=== PATIENT | female | born 1995 | race Two or more races ===

== ENCOUNTER 2024-01-07 10:15 | Day surgery (SDC) | payer MEDICAID, SELFPAY ==
--- NOTE | 2024-01-01 07:00 | EKG_ITS ---
[facility] Test Date: 2024-01-01 Pat Name: BENJI MORELAND Department: Room: - Gender: Female Clerical Adjuster: TEJAL : 1995 Requested By: Tomi Langston Order Number: [id number] Reading MD: Tomi Langston Measurements Intervals Max Rate: 81 P: 19 WA: 154 QRS: 87 QRSD: 96 T: 25 QT: 368 QTc: 430 Interpretive Statements SINUS RHYTHM INCOMPLETE RIGHT BUNDLE BRANCH BLOCK No previous ECG available for comparison /[id number]
[2024-01-01 11:22] VITALS: BMI 30.5
[2024-01-01 12:16] LABS: Basophils % (Auto) 0 % (0-2.5); Eosinophils # (Auto) 0.1 Thou/mm3 (0.0-0.5); Eosinophils % (Auto) 1 % (0-10); Hematocrit 40.5 % (36.0-46.0); Hemoglobin 13.3 g/dL (12.0-16.0); Immature Granulocytes % (Auto) 0 % (0-0); Immature Granulocytes Auto 0.05 Thou/mm3 (0.00-0.00); Lymphocytes # (Auto) 2.9 Thou/mm3 (1.0-4.8); Lymphocytes % (Auto) 25 % (10-50); Mean Corpuscular HGB Conc 32.8 g/dl (31.0-37.0); Mean Corpuscular Hemoglobin 29.3 pg (25.0-35.0); Mean Corpuscular Volume 89 fL (80-100); Monocytes # (Auto) 1.2 Thou/mm3 (0.0-0.8); Monocytes % (Auto) 11 % (0-12); Neutrophils # (Auto) 7.3 Thou/mm3 (1.8-7.7); Neutrophils % (Auto) 63 % (37-80); Nucleated Red Blood Cell % 0 /100 WBC (0); Platelet Count 324 Thou/mm3 (140-440); RDW Standard Deviation 43.8 fL (36.4-46.3); Red Blood Count 4.54 Miln/mm3 (4.00-5.20); White Blood Count 11.6 Thou/mm3 (3.6-11.0)
[2024-01-01 12:23] LABS: Partial Thromboplastin Time 29.2 Seconds (22.0-36.0); Prothrombin Time 11.4 Seconds (9.0-12.2)
[2024-01-01 12:28] LABS: Alanine Aminotransferase 30 U/L (10-49); Albumin, Serum 4.7 gm/dL (3.5-5.0); Albumin/Globulin Ratio 1.5 (1.2-2.2); Alkaline Phosphatase 85 U/L (46-116); Anion Gap 6 (7-16); Aspartate Amino Transferase 21 U/L (0-34); BUN/Creatinine Ratio 13 Ratio (12-20); Beta HCG,Quantitative 1 mIU/mL (<5.0); Bilirubin,Total 0.6 mg/dL (0.3-1.2); Blood Urea Nitrogen 9 mg/dL (9-23); Carbon Dioxide 26.2 mMol/L (20.0-31.0); Chloride 105 mMol/L (98-107); Creatinine (Component) 0.7 mg/dL (0.6-1.3); Estimated Creatinine Clearance 125.2 mL/min (>60); Globulin 3.2 gm/dL (2.3-3.5); Glucose 107 mg/dL (74-106); Osmolality,Calculated 272 (275-295); Potassium 3.6 mMol/L (3.4-5.1); Sodium 137 mMol/L (136-145); Total Protein 7.9 gm/dL (5.7-8.2); eGFR > 60 See Note
--- NOTE | 2024-01-05 11:18 | PD.SURHP ---
HPI Date of Admission January 07, 2024 Chief Complaint Chief Complaint: Infected mass in the right breast. Granulomatous mastitis right breast. HPI This is a 28-year-old female she has had a granulomatous mastitis requiring resection on the left breast that was about a year and a half ago. She continued to have granulomatous mastitis in the right breast now. She had this happen to her after she got a few years ago. It got to a point where it required resection of the granulomatous mastitis. This time she has extensive disease in the right breast and will require partial mastectomy after mapping by the ultrasound. Risk benefits and alternatives were discussed with the patient and informed consent is obtained. Past Medical History Past Medical History NEUROLOGIC: Negative Neurological Disorders or Seizures CARDIAC: Negative Cardiac Disorders or Congestive Heart Failure RESPIRATORY: Negative Respiratory Disorders or Chronic Obstructive Pulmonary Disease (COPD) GASTROINTESTINAL: Positive Gastrointestinal Disorders and Obesity GENITOURINARY: Negative Genitourinary Disorders or Renal Disease REPRODUCTIVE: Positive Previous Pregnancies (2) MUSCULOSKELETAL: Negative Musculoskeletal Disorders ENT: Negative History of ENT Problems ENDOCRINE: Negative Endocrine Disorders, Diabetes Mellitus Type 1 or Diabetes Mellitus Type 2 HEMATOLOGIC: Negative Blood Disorders OTHER HISTORY: Positive Hospitalization (surgery), Chicken Pox and Measles; Negative Autoimmune Disease, Shingles, Blood Transfusions, Blood Transfusion Reaction, Anesthesia Reactions, MRSA or Cancer Family History FAMILY HISTORY: Positive Family Cardiac Disorders; Negative Family Psychiatric Problems, Family Respiratory Disorders, Family Gastrointestinal Problems, Family Genitourinary Problems, Family Endocrine Disorders, Family Reproductive Disorders, Family Musculoskeletal Disorders, Family Cancer, Family Surgery or Family Anesthesia Reaction Surgical History SURGICAL: Positive Section Social History SMOKING STATUS: Never smoker Travel History EBOLA RISK: No Meds Home Medications and Allergies Home Medications ?Medication ?Instructions ?Recorded ?Confirmed ?Type No Known Home Medications 01/01/24 01/01/24 History Allergies Allergy/AdvReac Type Severity Reaction Status Date / Time No Known Allergies Allergy Verified 01/01/24 12:00 Exam Constitutional Constitutional: no acute distress Routine HEENT Exam Head: Present normocephalic Eye: Present EOMI and PERRL ENT: Present mucous membranes moist Routine Neck Exam Neck: Present supple and trachea midline Routine Chest/Breast/Axilla Exam Chest wall: Absent tenderness or mass Breast: Present tenderness (There generalized tenderness in the entire right breast) and scars (There are multiple large scars indicative of areas where she was having draining sinuses due to the granulomatous mastitis.) Comments: The ultrasound examination of the breast showed that she has a multiple abscesses they are connected to the areas of scar on the right breast. Some of these abscesses are also pointing to the nipple areola region. These were previously aspirated ultrasound guidance and treated with antibiotics but did not heal up. She also has scars from previous resection in the left breast and the left breast is not symptomatic at this time and has no tenderness. Routine Respiratory Exam Respiratory: Present chest non-tender, lungs clear, normal breath sounds and no resp distress; Absent respiratory distress Routine Cardiovascular Exam Cardiovascular: Present RRR Routine Abdominal Exam Abdominal: Present soft and normoactive bowel sounds Routine Extremities Exam Extremities: Present full ROM Routine Skin Exam Skin: Present intact, dry and warm Routine Neurological Exam Neurological: Present alert, oriented X3 and CN II-XII intact Routine Psychiatric Exam Psychiatric: Present normal affect and normal thought process Results Results: Laboratory Laboratory results: results reviewed Assessment & Plan Problem List (1) Granulomatous mastitis of right breast: Status: Acute Plan Ultrasound-guided mapping of the granulomatous mastitis areas in the right breast and resection with partial mastectomy. An informed consent was obtained. Quality Measures Quality Measures none
[2024-01-07] VITALS (9 sets, daily range): BP systolic 118–132; BP diastolic 72–83; PULSE 84–112; RESP 15–20; TEMP 36.5–37.7; O2SAT 95–98; BMI 30.2
--- NOTE | 2024-01-07 10:39 | CHAP ---
Patient expressed gratitude for prayer before her procedure.
[2024-01-07 13:04] LABS: Collection Type, Urine Clean Catch; Squamous Epithelial Cell,Urine 0 /hpf (0-5)
[2024-01-07 13:08] LABS: Bilirubin,Urine Negative (Negative); Blood,Urine 2+ (Negative); Clarity,Urine Clear (Clear/Hazy); Color,Urine Lt-Yellow (Lt Yel-Yel); Glucose, Urine Negative (Negative); Ketones,Urine Negative (Negative); Leukocyte Esterase,Urine Negative (Negative); Nitrite,Urine Negative (Negative); Protein,Urine Negative (Neg - Trace); RBC,Urine 20 /hpf (0-3); Specific Gravity,Urine 1.017 (1.001-1.035); Urobilinogen,Urine Negative mg/dL (0.0-1.0); WBC,Urine 1 /hpf (0-5)
--- NOTE | 2024-01-07 15:25 | SUR.PHASEI ---
1525: Pt. AAOx4, vitals stable, breathing unlabored, no complaint of pain or nausea, dressing to right breast CDI, PRATIBHA drain in place draining sanguineous fluid, report received from Gianni MADERA and MD Plascencia.
--- NOTE | 2024-01-07 15:29 | ESOP_ITS ---
Date of Procedure 01/07/24 Pre Op Diagnosis Granulomatous mastitis right breast Post Op Diagnosis Same. Procedure Right partial mastectomy Findings This patient has had extensive granulomatous mastitis. She had a sinuses on the skin draining she had a significant number of tracking infections underneath the nipple areola 12 o'clock position at 6 o'clock position at 3 o'clock position into 9 o'clock position. Basically the entire ductal system in the central portion of the breast was involved in the granulomatous mastitis with multiple abscesses. Several cultures were taken from the pus collections. The area was significantly inflamed. Procedure Description The patient is interviewed in the preop area and site and side were marked. The procedure was discussed in great detail with the patient. All questions were answered and informed consent is obtained. Patient was then taken to the operating room and patient is positioned supine on the operating table. The general anesthesia was administered in a satisfactory manner. An ultrasound examination of the breast was carried out to zaira the areas involved in mastitis. After that the right breast chest wall shoulder regions were prepped and draped in usual manner. Elliptical incision was made around the sinus openings and the incision was carried from 9:00 around the areola and to the 3 o'clock position. The upper and lower flaps were drawn on the surface. The incision is deepened through the skin and subcutaneous tissue. The flaps were developed at the level of skin and subcutaneous tissue. The dissection is carried out underneath the nipple areola and the ductal system was disconnected from the nipple. Dissection is carried out circumferentially taking out of the infected involved ductal tissue from 12:00 to 3:00 to 6:00 to 9:00 into 12 o'clock position. Extensive dissection and resection was needed. The ductal tissue was removed all the way up to the pectoralis fascia. Because of the inflammation there was brisk bleeding the bleeding was controlled with cautery and suture ligation technique. After all the involved tissue was removed the op erative field was thoroughly irrigated with saline solution and again hemostasis was achieved. I placed a 10 [place] flat Wagner-Spring drain into the operative cavity by a separate stab incision and sutured to the skin using 2-0 nylon suture. The subcutaneous tissue was approximated by 2-0 Vicryl interrupted sutures and skin by 3-0 nylon interrupted sutures. Sterile pressure dressing was applied. Patient tolerated the procedure very well complications none. Anesthesia GETA Drains 7 Mong[place]ian flat Wagner-Spring Pathology / specimen Other (Right breast granulomatous mastitis partial mastectomy) Estimated Blood Loss 200 Condition Stable Disposition PACU Surgeon Tomi Langston MD Surgical Staff Operation Date: 01/07/24 14:00 Case Staff Anesthesiologist: Hunter Plascencia RN First Assistant: Dali Salazar RNmold inspector: Nabor Mathew RN equipment application specialist Ramakrishna Rosario instructor adjunct surgical technician Cheryl instructor adjunct surgical technician
[2024-01-07] MEDS: fentaNYL CIT INJ 50 mCg/ML AMP 2ML 25 MCG IV ×2 (15:38→15:56)
--- NOTE | 2024-01-07 16:35 | SUR.PHASEII ---
1635: Pt. AAOx4, vitals stable, breathing unlabored, no complaint of pain or nausea, dressing to right breast CDI, no active bleed noted, PRATIBHA drain in place draining sangiounous fluid, educated pt. and her how to drain PRATIBHA drain, both verbalized understanding and had no further questions. Pt. tolerated sips of water well, pt. ambulated to wheelchair with steady gait and no assist, no complications. Pt. left with all personal belongings.
== END 2024-01-07 16:35 | disposition home or self-care (01) ==
PROVIDERS: PCP Family Medicine; Referring Provider Specialist; Visit Provider Specialist
PROC: (CPT 19301; principal; 2024-01-07 13:45)
DX: N61.21 Granulomatous mastitis, right breast (principal); E66.9 Obesity, unspecified; Z82.49 Family history of ischemic heart disease and other diseases of the circulatory system; Z68.30 Body mass index [BMI] 30.0-30.9, adult; Z01.810 Encounter for preprocedural cardiovascular examination
CPT/HCPCS: 19301; 36415; 80053; 81001; 84702; 85025; 85610; 85730; 87070; 87075; 87205; 93005; A4649; J0694; J1100; J1885; J2250; J2405; J2704; J3010